=== PATIENT | male | born 1945 | race Caucasian/White ===

== ENCOUNTER 2017-12-29 10:15 | Day surgery (SDC) | payer MEDICARE, OTHER ==
[~2017-12-29] VITALS: Ht 182.9 cm; Wt 95.0 kg
[~2017-12-29 10:15] MED LIST: ASPI-515 PO; CHOL500045 PO; EZET1TAB30 PO; NALT50TA PO; OMEG500C3 PO; THYR30TA PO; TURM500C7 PO; UBID100C24 PO
[2017-12-29 10:56] VITALS: BP 146/79
[2017-12-29] MEDS ORDERED: MIDAZOLAM 1 MG/ML, 5ML ONE (11:19)
[2017-12-29] MEDS ORDERED: RIVA20TA PO (11:20)
[2017-12-29] MEDS ORDERED: FENTANYL PF 100 MCG/2ML ONE (11:20)
[2017-12-29] MEDS ORDERED: RED600CA2 PO (11:20)
[2017-12-29] MEDS ORDERED: Potassium PO (11:20)
[2017-12-29] MEDS ORDERED: Vitamin C PO (11:20)
[2017-12-29] MEDS ORDERED: CYAN10002 IM (11:20)
[2017-12-29] MEDS ORDERED: VITA1TAB19 PO (11:20)
[2017-12-29] MEDS ORDERED: DIGO250T PO (11:20)
[2017-12-29] MEDS ORDERED: FENO134C PO (11:20)
[2017-12-29] MEDS ORDERED: MAGN100T PO (11:20)
[2017-12-29] MEDS ORDERED: OMEG-26 PO (11:20)
[2017-12-29] MEDS ORDERED: METO25TA91 PO (11:20)
[2017-12-29] MEDS ORDERED: LACT1CAP35 PO (11:20)
[2017-12-29] MEDS ORDERED: ANAS1TAB PO (11:20)
[2017-12-29] MEDS ORDERED: NIAC500T85 PO (11:20)
[2017-12-29] MEDS ORDERED: VITA400C43 PO (11:20)
== END 2017-12-29 14:35 ==
LOC: CACL 10:15
PROVIDERS: ATTEND Internal Medicine Cardiovascular Disease
DX: I48.91 Unspecified atrial fibrillation (principal); E78.5 Hyperlipidemia, unspecified; E03.9 Hypothyroidism, unspecified; Z98.890 Other specified postprocedural states; Z95.0 Presence of cardiac pacemaker; Z79.82 Long term (current) use of aspirin; Z88.8 Allergy status to other drugs, medicaments and biological substances
CPT/HCPCS: 92960; J2250; J3010

== ENCOUNTER 2018-05-20 11:01 | Inpatient (IN) | payer MEDICARE, OTHER ==
[~2018-05-20] VITALS: Ht 182.9 cm; Wt 95.3 kg
[~2018-05-20 11:01] MED LIST changes: +ANAS1TAB PO; +CYAN10002 IM; +DIGO250T PO; +FENO134C PO; +LACT1CAP35 PO; +MAGN100T PO; +METO25TA91 PO; +NIAC500T85 PO; +OMEG-26 PO; +Potassium PO; +RED600CA2 PO; +RIVA20TA PO; +VITA1TAB19 PO; +VITA400C43 PO; +Vitamin C PO
[2018-05-20] MEDS ORDERED: LORazepam 2 MG/ML, 1ML ONE (11:30)
[2018-05-20] MEDS ORDERED: ACETAMINOPHEN 325 MG TABLET PO ONE (12:00)
[2018-05-20] MEDS ORDERED: LORazepam 2 MG/ML, 1ML IVPush ONE (12:00)
[2018-05-20] MEDS ORDERED: SODIUM CHLORIDE 0.9% 1,000ML IVBOLUS ONE ×3 (12:00→19:30)
[2018-05-20 12:18] LABS: ALBUMIN 4.3 g/dL (3.4-5.0); ANION GAP 13 mmol/L (5-15); CALCIUM 9.4 mg/dL (8.5-10.1); CHLORIDE 104 mmol/L (98-107); CREATININE 1.46 mg/dL (0.7-1.3)
[2018-05-20 12:19] LABS: MEAN CORPUSCULAR HEMOGLOBIN 33.7 pg (27.5-34.5); MEAN CORPUSCULAR HGB CONC 34.2 g/dL (33.2-36.2); MEAN CORPUSCULAR VOLUME 98.6 fL (81-97); MEAN PLATELET VOLUME 7.9 fL (7.4-10.4); PLATELET COUNT 137 x10^3/uL (130-400); RED BLOOD COUNT 4.87 x10^6/uL (4.38-5.82); RED CELL DISTRIBUTION WIDTH 16.3 % (9.4-14.8)
[2018-05-20 12:24] LABS: INTERNATIONAL NORMALIZED RATIO 1.23 (0.93-1.1); PROTHROMBIN TIME 12.7 Seconds (9.6-11.5)
[2018-05-20 12:27] LABS: TROPONIN I < 0.015 ng/mL (0.000-0.045)
[2018-05-20 12:28] LABS: FREE T4 (FREE THYROXINE) 1.01 ng/dL (0.76-1.46)
[2018-05-20 12:45] LABS: MD YES
[2018-05-20 12:46] LABS: BAND#(MANUAL) 1.58 x10^3/uL; BANDS%(MANUAL) 22 % (0-7); SEG#(MANUAL) 4.82 x10^3/uL (1.8-6.8); SEGS% (MANUAL) 67 % (42-75)
[2018-05-20 12:47] LABS: ANISOCYTOSIS 1+; LYMPH#(MANUAL) 0.58 x10^3/uL (1-3.4); LYMPHS% (MANUAL) 8 % (22-44); METAMYELOCYTES# (MANUAL) 0.14 x10^3/uL (0-0); METAMYELOCYTES% (MANUAL) 2 % (0-1); MONOS#(MANUAL) 0.07 x10^3/uL (0.3-2.7); MONOS% (MANUAL) 1 % (2-9); NRBC % (MANUAL) 1 % (0-1); POLYCHROMASIA 1+
[2018-05-20 12:48] LABS: <PLATELET ESTIMATE> ADEQUATE; <PLT MORPHOLOGY> NORMAL PLT MORPH; PMNS WITH VACUOLES 1+
[2018-05-20] MEDS ORDERED: CEFTRIAXONE PMX 1GM/50ML 50 ML ONE (13:12)
[2018-05-20] MEDS ORDERED: ACETAMINOPHEN 325 MG TABLET ONE (13:23)
[2018-05-20] MEDS ORDERED: CEFTRIAXONE 1,000 MG in SODIUM CHLORIDE 0.9% 50 ML IVPB ONE (13:30)
[2018-05-20 13:44] LABS: ALBUMIN 3.9 g/dL (3.4-5.0); BILIRUBIN, DIRECT 0.4 mg/dL (0.1-0.2)
[2018-05-20 13:46] LABS: MICROSCOPIC NOT IND
[2018-05-20 13:46] LABS: BILIRUBIN,INDIRECT 0.8 mg/dL (0.0-2.0); BILIRUBIN,TOTAL 1.2 mg/dL (0.2-1.0); TOTAL PROTEIN 7.3 g/dL (6.4-8.2)
[2018-05-20 13:48] LABS: CULTURE INDICATED? NO
[2018-05-20] MEDS ORDERED: SODIUM CHLORIDE FLUSH 10ML SYR IVF PRN (14:30)
[2018-05-20] MEDS ORDERED: VANCOMYCIN PMX 1GM/200ML 200 ML IV ONE (15:00)
[2018-05-20] MEDS ORDERED: AMPICILLIN/SULBACTAM 3 GM in SODIUM CHLORIDE 0.9% 100 ML IV SCH (15:00)
[2018-05-20] MEDS ORDERED: VANCOMYCIN PER PHARMACY MC PRN (15:00)
[2018-05-20] MEDS ORDERED: PHARMACY INSTRUCTION MC SCH (15:00)
[2018-05-20] MEDS ORDERED: SODIUM CHLORIDE 0.9% 1,000 ML IV SCH (15:01)
[2018-05-20] MEDS ORDERED: morphine SULFATE 10 MG/ML, 1ML IVPush PRN (15:30)
[2018-05-20] MEDS ORDERED: ACETAMINOPHEN 325 MG TABLET PO PRN (15:30)
[2018-05-20] MEDS ORDERED: ONDANSETRON 2MG/ML, 2ML IVPush PRN (15:30)
[2018-05-20] MEDS ORDERED: LORazepam 2 MG/ML, 1ML IVPush PRN (15:30)
[2018-05-20] MEDS ORDERED: PHARMACOKINETIC CONSULTATION MC ONE (17:00)
[2018-05-20] MEDS ORDERED: PHARMACOKINETIC MONITORING MC PRN (17:00)
[2018-05-20] MEDS ORDERED: LIDOCAINE-MPF 2%, 2ML ONE (17:45)
[2018-05-20 18:15] VITALS: BP 91/52
[2018-05-20] MEDS: VANCOMYCIN 1,800 MG in SODIUM CHLORIDE 0.9% 250 ML IV SCH (18:33)
[2018-05-20] MEDS ORDERED: IBUP-1222 PO (18:37)
[2018-05-20 19:08] VITALS: BP 103/64
[2018-05-20 22:23] VITALS: BP 92/53
[2018-05-21] VITALS (7 sets, daily range): BP systolic 89–125; BP diastolic 50–77
[2018-05-21] MEDS ORDERED: ABIR250T PO (00:10)
[2018-05-21] MEDS: SODIUM CHLORIDE 0.9% 1,000 ML IV SCH ×3 (00:16→17:48)
[2018-05-21] MEDS: CEFTRIAXONE 2 GM in SODIUM CHLORIDE 0.9% 50 ML IV SCH (01:30)
[2018-05-21 05:24] LABS: ALBUMIN 2.8 g/dL (3.4-5.0); ANION GAP 9 mmol/L (5-15); CALCIUM 7.4 mg/dL (8.5-10.1); CHLORIDE 108 mmol/L (98-107)
[2018-05-21 05:31] LABS: ALANINE AMINOTRANSFERASE 24 U/L (12-78); ALKALINE PHOSPHATASE 51 U/L (45-117); BILIRUBIN,TOTAL 0.4 mg/dL (0.2-1.0); CHOL/HDL RATIO 5.1; CHOLESTEROL, TOTAL 133 mg/dL (140-239); HDL CHOL % 20 % (26-37); HDL CHOLESTEROL (DIRECT) 26 mg/dL (40-60); TOTAL PROTEIN 5.6 g/dL (6.4-8.2); TRIGLYCERIDES 513 mg/dL (50-200)
[2018-05-21 07:10] LABS: MEAN CORPUSCULAR HEMOGLOBIN 33.4 pg (27.5-34.5); MEAN CORPUSCULAR HGB CONC 33.9 g/dL (33.2-36.2); MEAN CORPUSCULAR VOLUME 98.5 fL (81-97); MEAN PLATELET VOLUME 7.7 fL (7.4-10.4); PLATELET COUNT 80 x10^3/uL (130-400); RED BLOOD COUNT 3.69 x10^6/uL (4.38-5.82); RED CELL DISTRIBUTION WIDTH 17.4 % (9.4-14.8)
[2018-05-21 07:43] LABS: MD YES
[2018-05-21 07:56] LABS: <PLATELET ESTIMATE> DECREASED; <PLT MORPHOLOGY> NORMAL PLT MORPH; ANISOCYTOSIS 1+; BAND#(MANUAL) 0.31 x10^3/uL; BANDS%(MANUAL) 2 % (0-7); LYMPH#(MANUAL) 1.23 x10^3/uL (1-3.4); LYMPHS% (MANUAL) 8 % (22-44); MONOS#(MANUAL) 0.92 x10^3/uL (0.3-2.7); MONOS% (MANUAL) 6 % (2-9); SEG#(MANUAL) 12.94 x10^3/uL (1.8-6.8); SEGS% (MANUAL) 84 % (42-75)
[2018-05-21] MEDS: METOPROLOL SUCCINATE 25 MG TAB.ER.24H PO SCH (08:55)
[2018-05-21] MEDS ORDERED: CYANOCOBALAMIN 1,000 MCG/ML, 1ML IM SCH (09:00)
[2018-05-21] MEDS: DIGOXIN 0.25 MG TABLET PO SCH (09:05)
[2018-05-21] MEDS: LACTOBACILLUS CHEW TABLET PO SCH (09:05)
[2018-05-21] MEDS: FENOFIBRATE 145 MG TABLET PO SCH (09:05)
[2018-05-21] MEDS: ASPIRIN 81 MG TABLET EC PO SCH (09:05)
[2018-05-21] MEDS: CHOLECALCIFEROL 5,000 UNIT TAB PO SCH (09:06)
[2018-05-21] MEDS ORDERED: PRED5TAB PO (10:30)
[2018-05-21] MEDS: THYROID 30 MG TABLET PO SCH (11:35)
[2018-05-21] MEDS ORDERED: LIDOCAINE-MPF 2%, 2ML ONE (15:12)
[2018-05-21] MEDS ORDERED: FLUMAZENIL 0.1 MG/1 ML, 5ML ONE (15:39)
[2018-05-21] MEDS ORDERED: FENTANYL PF 100 MCG/2ML ONE ×2 (15:39)
[2018-05-21] MEDS ORDERED: MIDAZOLAM 1 MG/ML, 5ML ONE (15:39)
[2018-05-21] MEDS ORDERED: NALOXONE 1 MG/ML, 2ML ONE (15:40)
[2018-05-21] MEDS: VANCOMYCIN 1,800 MG in SODIUM CHLORIDE 0.9% 250 ML IV SCH (17:48)
[2018-05-21] MEDS ORDERED: RIVAROXABAN 20 MG TABLET PO SCH (18:00)
[2018-05-22] MEDS: CEFTRIAXONE 2 GM in SODIUM CHLORIDE 0.9% 50 ML IV SCH (00:28)
[2018-05-22 02:29] VITALS: BP 117/72
[2018-05-22] MEDS: SODIUM CHLORIDE 0.9% 1,000 ML IV SCH (05:12)
[2018-05-22 08:38] VITALS: BP 152/80
[2018-05-22] MEDS: FENOFIBRATE 145 MG TABLET PO SCH (08:41)
[2018-05-22] MEDS: LACTOBACILLUS CHEW TABLET PO SCH (08:41)
[2018-05-22] MEDS: CYANOCOBALAMIN 1,000 MCG TABLET PO SCH (08:41)
[2018-05-22] MEDS: THYROID 30 MG TABLET PO SCH (08:41)
[2018-05-22] MEDS: METOPROLOL SUCCINATE 25 MG TAB.ER.24H PO SCH (08:42)
[2018-05-22] MEDS: DIGOXIN 0.25 MG TABLET PO SCH (08:42)
[2018-05-22] MEDS: CHOLECALCIFEROL 5,000 UNIT TAB PO SCH (08:42)
[2018-05-22] MEDS: ASPIRIN 81 MG TABLET EC PO SCH (08:46)
[2018-05-22] MEDS ORDERED: ANASTROZOLE 1 MG TABLET PO SCH (09:00)
[2018-05-22 14:07] VITALS: BP 134/81
[2018-05-22] MEDS: VANCOMYCIN 1,800 MG in SODIUM CHLORIDE 0.9% 250 ML IV SCH (17:00)
[2018-05-22] MEDS: RIVAROXABAN 20 MG TABLET PO SCH (17:57)
[2018-05-22 19:22] VITALS: BP 153/82
[2018-05-22] MEDS: BUTALB/APAP/CAFFEINE 50MG/325MG/40MG PO PRN (22:09)
[2018-05-23] MEDS: CEFTRIAXONE 2 GM in SODIUM CHLORIDE 0.9% 50 ML IV SCH (00:12)
[2018-05-23 02:52] VITALS: BP 133/72
[2018-05-23 03:56] LABS: ANION GAP 5 mmol/L (5-15); CALCIUM 8.2 mg/dL (8.5-10.1); CHLORIDE 109 mmol/L (98-107); CREATININE 1.03 mg/dL (0.7-1.3)
[2018-05-23 03:57] LABS: MEAN CORPUSCULAR HGB CONC 34.5 g/dL (33.2-36.2); MEAN CORPUSCULAR VOLUME 98.5 fL (81-97); RED BLOOD COUNT 3.67 x10^6/uL (4.38-5.82); RED CELL DISTRIBUTION WIDTH 17.6 % (9.4-14.8)
[2018-05-23 04:30] LABS: MD YES; MEAN PLATELET VOLUME 8.1 fL (7.4-10.4); PLATELET COUNT 70 x10^3/uL (130-400)
[2018-05-23 04:35] LABS: ANISOCYTOSIS 1+; BAND#(MANUAL) 0.25 x10^3/uL; BANDS%(MANUAL) 3 % (0-7); LYMPH#(MANUAL) 0.83 x10^3/uL (1-3.4); LYMPHS% (MANUAL) 10 % (22-44); METAMYELOCYTES# (MANUAL) 0.17 x10^3/uL (0-0); METAMYELOCYTES% (MANUAL) 2 % (0-1); MONOS#(MANUAL) 0.25 x10^3/uL (0.3-2.7); MONOS% (MANUAL) 3 % (2-9); REACTIVE LYMPHS # (MANUAL) 0.08 x10^3/uL (0-0); REACTIVE LYMPHS % (MANUAL) 1 % (0-0); SEG#(MANUAL) 6.72 x10^3/uL (1.8-6.8); SEGS% (MANUAL) 81 % (42-75)
[2018-05-23 04:36] LABS: <PLATELET ESTIMATE> DECREASED; <PLT MORPHOLOGY> NORMAL PLT MORPH; POLYCHROMASIA 1+; SMUDGE CELLS 1+
[2018-05-23 08:44] VITALS: BP 148/76
[2018-05-23] MEDS: CYANOCOBALAMIN 1,000 MCG TABLET PO SCH (08:48)
[2018-05-23] MEDS: FENOFIBRATE 145 MG TABLET PO SCH (08:48)
[2018-05-23] MEDS: ASPIRIN 81 MG TABLET EC PO SCH (08:49)
[2018-05-23] MEDS: DIGOXIN 0.25 MG TABLET PO SCH (08:49)
[2018-05-23] MEDS: LACTOBACILLUS CHEW TABLET PO SCH (08:49)
[2018-05-23] MEDS: METOPROLOL SUCCINATE 25 MG TAB.ER.24H PO SCH (08:50)
[2018-05-23] MEDS: THYROID 30 MG TABLET PO SCH (08:50)
[2018-05-23] MEDS: BUTALB/APAP/CAFFEINE 50MG/325MG/40MG PO PRN (08:57)
[2018-05-23] MEDS: CHOLECALCIFEROL 5,000 UNIT TAB PO SCH (08:58)
[2018-05-23 13:21] VITALS: BP 145/78
[2018-05-23] MEDS: RIVAROXABAN 20 MG TABLET PO SCH (14:36)
[2018-05-23 18:44] VITALS: BP 166/80
[2018-05-23] MEDS: ATORVASTATIN 20 MG TABLET PO SCH (20:12)
[2018-05-23] MEDS: ACYCLOVIR 200 MG CAPSULE PO SCH (22:34)
[2018-05-24 00:41] VITALS: BP 161/82
[2018-05-24] MEDS: CEFTRIAXONE 2 GM in SODIUM CHLORIDE 0.9% 50 ML IV SCH (01:51)
[2018-05-24] MEDS: ACYCLOVIR 200 MG CAPSULE PO SCH ×6 (01:51→22:56)
[2018-05-24] MEDS: RIVAROXABAN 20 MG TABLET PO SCH (06:25)
[2018-05-24 08:45] VITALS: BP 139/86
[2018-05-24] MEDS: THYROID 30 MG TABLET PO SCH (08:46)
[2018-05-24] MEDS: CYANOCOBALAMIN 1,000 MCG TABLET PO SCH (08:47)
[2018-05-24] MEDS: LACTOBACILLUS CHEW TABLET PO SCH (08:47)
[2018-05-24] MEDS: DIGOXIN 0.25 MG TABLET PO SCH (08:47)
[2018-05-24] MEDS: CHOLECALCIFEROL 5,000 UNIT TAB PO SCH (08:47)
[2018-05-24] MEDS: ASPIRIN 81 MG TABLET EC PO SCH ×2 (08:47→09:00)
[2018-05-24] MEDS: FENOFIBRATE 145 MG TABLET PO SCH (08:47)
[2018-05-24] MEDS: METOPROLOL SUCCINATE 25 MG TAB.ER.24H PO SCH (08:47)
[2018-05-24] MEDS: BUTALB/APAP/CAFFEINE 50MG/325MG/40MG PO PRN ×2 (09:01→14:07)
[2018-05-24 12:50] VITALS: BP 116/74
[2018-05-24 18:45] VITALS: BP 145/81
[2018-05-24] MEDS: ATORVASTATIN 20 MG TABLET PO SCH (21:35)
[2018-05-25] MEDS: CEFTRIAXONE 2 GM in SODIUM CHLORIDE 0.9% 50 ML IV SCH (01:01)
[2018-05-25 01:30] VITALS: BP 156/81
[2018-05-25] MEDS: ACYCLOVIR 200 MG CAPSULE PO SCH ×2 (02:56→09:57)
[2018-05-25] MEDS: RIVAROXABAN 20 MG TABLET PO SCH (06:37)
[2018-05-25 08:00] VITALS: BP 145/85
[2018-05-25] MEDS ORDERED: ATOR20TA9 PO ×2 (09:24→09:26)
[2018-05-25] MEDS ORDERED: CEFT2PIG2 IV (09:24)
[2018-05-25] MEDS: THYROID 30 MG TABLET PO SCH (09:55)
[2018-05-25] MEDS: LACTOBACILLUS CHEW TABLET PO SCH (09:55)
[2018-05-25] MEDS: ASPIRIN 81 MG TABLET EC PO SCH (09:55)
[2018-05-25] MEDS: FENOFIBRATE 145 MG TABLET PO SCH (09:56)
[2018-05-25] MEDS: DIGOXIN 0.25 MG TABLET PO SCH (09:56)
[2018-05-25] MEDS: METOPROLOL SUCCINATE 25 MG TAB.ER.24H PO SCH (09:56)
[2018-05-25] MEDS: CYANOCOBALAMIN 1,000 MCG TABLET PO SCH (09:56)
[2018-05-25] MEDS: CHOLECALCIFEROL 5,000 UNIT TAB PO SCH (09:57)
[2018-05-25 11:35] LABS: MEAN CORPUSCULAR HGB CONC 34.7 g/dL (33.2-36.2); MEAN CORPUSCULAR VOLUME 97.8 fL (81-97); MEAN PLATELET VOLUME 8.1 fL (7.4-10.4); PLATELET COUNT 119 x10^3/uL (130-400); RED BLOOD COUNT 4.41 x10^6/uL (4.38-5.82); RED CELL DISTRIBUTION WIDTH 17.2 % (9.4-14.8)
[2018-05-25 12:07] LABS: MD YES
[2018-05-25 12:14] LABS: EOS#(MANUAL) 0.18 x10^3/uL (0.0-0.4); EOS% (MANUAL) 2 % (1-7); LYMPH#(MANUAL) 1.41 x10^3/uL (1-3.4); LYMPHS% (MANUAL) 16 % (22-44); MONOS#(MANUAL) 0.53 x10^3/uL (0.3-2.7); MONOS% (MANUAL) 6 % (2-9); MYELOCYTES# (MANUAL) 0.09 x10^3/uL (0-0); MYELOCYTES% (MANUAL) 1 % (0-0); SEGS% (MANUAL) 75 % (42-75)
[2018-05-25 12:15] LABS: <PLATELET ESTIMATE> DECREASED; <PLT MORPHOLOGY> NORMAL PLT MORPH; ANISOCYTOSIS 1+; POLYCHROMASIA 1+
[2018-05-26] MEDS ORDERED: RIVAROXABAN 20 MG TABLET PO SCH ×2 (06:00)
== END 2018-05-25 13:45 | disposition home or self-care (01) | DRG 314 ==
LOC: ED 13:01 → EDIP 14:03 → 5SO 18:14 → DCLOUNGE 05-25 13:40
PROVIDERS: ADMIT Hospitalist; ATTEND Hospitalist
PROC: 02HV33Z Insertion of Infusion Device into Superior Vena Cava, Percutaneous Approach (ICD-10-PCS; principal; 2018-05-20)
PROC: B5181ZA Fluoroscopy of Superior Vena Cava using Low Osmolar Contrast, Guidance (ICD-10-PCS; 2018-05-20)
PROC: B548ZZA Ultrasonography of Superior Vena Cava, Guidance (ICD-10-PCS; 2018-05-20)
PROC: 05PY33Z Removal of Infusion Device from Upper Vein, Percutaneous Approach (ICD-10-PCS; 2018-05-21)
PROC: 0JPT0WZ Removal of Totally Implantable Vascular Access Device from Trunk Subcutaneous Tissue and Fascia, Open Approach (ICD-10-PCS; 2018-05-21)
DX: T80.211A Bloodstream infection due to central venous catheter, initial encounter (principal); A41.51 Sepsis due to Escherichia coli [E. coli]; G93.40 Encephalopathy, unspecified; N17.0 Acute kidney failure with tubular necrosis; D68.69 Other thrombophilia; C61 Malignant neoplasm of prostate; D69.59 Other secondary thrombocytopenia; E03.9 Hypothyroidism, unspecified; E78.00 Pure hypercholesterolemia, unspecified; E78.5 Hyperlipidemia, unspecified; I48.2 Chronic atrial fibrillation; I73.9 Peripheral vascular disease, unspecified; M19.90 Unspecified osteoarthritis, unspecified site; Z79.01 Long term (current) use of anticoagulants; Z90.49 Acquired absence of other specified parts of digestive tract; Z95.0 Presence of cardiac pacemaker
CPT/HCPCS: 36415; 36569; 36590; 71045; 71250; 74176; 76937; 77001; 80048; 80053; 80061; 80076; 81003; 82040; 83605; 83735; 84100; 84145; 84439; 84443; 84484; 85025; 85610; 85651; 85730; 86140; 87040; 87070; 87077; 87186; 93005; 96374; 96375; 99156; 99157; 99291; J0295; J0696; J2250; J3010; J3370; J3490; C1751; J2060; J2310; J7030; J7050

== ENCOUNTER 2018-08-05 08:36 | Day surgery (SDC) | payer MEDICARE, OTHER ==
[~2018-08-05] VITALS: Ht 182.9 cm; Wt 86.4 kg
[~2018-08-05 08:36] MED LIST changes: +ABIR250T PO; +ATOR20TA9 PO; +CEFT2PIG2 IV; +IBUP-1222 PO; +PRED5TAB PO
[2018-08-05 09:07] VITALS: BP 138/89
[2018-08-05] MEDS ORDERED: ZINC50TA2 PO (09:22)
[2018-08-05] MEDS ORDERED: PROPOFOL 10 MG/ML, 20ML ONE (09:54)
== END 2018-08-05 11:34 | disposition home or self-care (01) ==
LOC: CACL 08:36
PROVIDERS: ATTEND Internal Medicine Cardiovascular Disease
DX: I48.91 Unspecified atrial fibrillation (principal); E78.2 Mixed hyperlipidemia; E03.9 Hypothyroidism, unspecified; Z95.0 Presence of cardiac pacemaker; Z98.890 Other specified postprocedural states; Z79.899 Other long term (current) drug therapy; Z45.018 Encounter for adjustment and management of other part of cardiac pacemaker
CPT/HCPCS: 92960; 93005; J2704

== ENCOUNTER → 2019-09-09 | Outpatient (CLI) | payer MEDICARE, OTHER ==
[~2019-09-09] MED LIST changes: +ATOR20TA37 PO; -ATOR20TA9 PO; +REGADENOSON 0.4 MG/5 ML SYRINGE ONE; +ZINC50TA2 PO
== END | disposition home or self-care (01) ==
LOC: CFH 07:50
PROVIDERS: ATTEND Internal Medicine Cardiovascular Disease
DX: I08.3 Combined rheumatic disorders of mitral, aortic and tricuspid valves (principal); I47.1 Supraventricular tachycardia; E78.5 Hyperlipidemia, unspecified; I73.9 Peripheral vascular disease, unspecified; Z87.891 Personal history of nicotine dependence
CPT/HCPCS: 78452; 93017; 93306; A9502; J2785

== ENCOUNTER → 2021-02-16 | Outpatient (CLI) | payer MEDICARE, OTHER ==
[~2021-02-16] MED LIST changes: -ASPI-515 PO; +ASPI-963 PO; -DIGO250T PO; +DIGO250T3 PO; +DIPHENHYDRAMINE 50 MG/ML, 1ML ONE; +FAMOTIDINE 20 MG/2 ML ONE; -REGADENOSON 0.4 MG/5 ML SYRINGE ONE; +VISIPAQUE 320 MG/ML, 150ML BOTTLE ONE; +methylPREDNISolone SOD SUCC 125 MG/2 ML ONE
== END | disposition home or self-care (01) ==
LOC: RAD 09:42
PROVIDERS: ATTEND Internal Medicine Cardiovascular Disease
DX: Z01.810 Encounter for preprocedural cardiovascular examination (principal); R16.1 Splenomegaly, not elsewhere classified; I25.10 Atherosclerotic heart disease of native coronary artery without angina pectoris; R06.02 Shortness of breath; I70.0 Atherosclerosis of aorta; I35.0 Nonrheumatic aortic (valve) stenosis; I65.29 Occlusion and stenosis of unspecified carotid artery; I35.8 Other nonrheumatic aortic valve disorders
CPT/HCPCS: 71275; 74174; J1200; J2930; Q9967

== ENCOUNTER 2021-03-22 12:46 | Outpatient (CLI) | payer MEDICARE, OTHER ==
[~2021-03-22 12:46] MED LIST changes: +ACET325T26 PO; +AHCC PO; +ALPH300C PO; +BUFFERED VITAMIN C PO; +CALCIUM MAG VIT D PO; -DIPHENHYDRAMINE 50 MG/ML, 1ML ONE; -FAMOTIDINE 20 MG/2 ML ONE; +FINA5TAB4 PO; +L.AC1CAP6 PO; +METF500T17 PO; +MILK87.5 PO; +MULT-658 PO; +OXYC5TAB98 PO; +POLY17PO5 PO; +SENN-211 PO; +TUMERIC PO; +UBID100C41 PO; -VISIPAQUE 320 MG/ML, 150ML BOTTLE ONE; +[UNRECOGNIZED DRUG - OTHER] PO; +[UNRECOGNIZED DRUG - OTHER] PO; +[UNRECOGNIZED DRUG - OTHER] PO; +[UNRECOGNIZED DRUG - OTHER] PO; +[UNRECOGNIZED DRUG - OTHER] PO; +[UNRECOGNIZED DRUG - OTHER] PO; +[UNRECOGNIZED DRUG - OTHER] PO; +[UNRECOGNIZED DRUG - OTHER] PO; +[UNRECOGNIZED DRUG - OTHER] PO; +[UNRECOGNIZED DRUG - OTHER] PO; +[UNRECOGNIZED DRUG - OTHER] PO; -methylPREDNISolone SOD SUCC 125 MG/2 ML ONE
== END 2021-03-22 23:59 | disposition home or self-care (01) ==
LOC: CVU 12:46
PROVIDERS: ATTEND Internal Medicine Cardiovascular Disease
DX: Z01.810 Encounter for preprocedural cardiovascular examination (principal); I08.1 Rheumatic disorders of both mitral and tricuspid valves; R06.02 Shortness of breath; I65.29 Occlusion and stenosis of unspecified carotid artery
CPT/HCPCS: 93308; 93321; 93325